=== PATIENT | female | born 1985 ===

== ENCOUNTER 2020-10-14 09:42 | Emergency (ER) | payer BC ==
[2020-10-14] MEDS ORDERED: LORazepam 1 MG Tab PO ONE (10:15)
--- NOTE | 2020-10-14 10:15 | EDM.PDOCBH ---
ED HPI GENERAL MEDICAL PROBLEM - General Stated Complaint: PANIC ATTACK Time Seen by Provider: 10/14/20 10:04 Source of Information: Reports: Patient History Limitations: Reports: No Limitations - History of Present Illness INITIAL COMMENTS - FREE TEXT/NARRATIVE: HISTORY AND PHYSICAL: History of present illness: Patient is a 35-year-old female who presents to the emergency room with complaints of a panic attack that has been going on for the past 5 days. She states she has had depression and anxiety over the past 10 years and is currently on Celexa. In the past she has used Ativan as needed for anxiety attacks. She previously had been seeing a provider in [place], but due to COVID she had to move from [place] to [place]. She state has had feelings of anxiety for periods of minutes to hours that will subside briefly but returned. "I feel like there's somethings wrong with me, it just wont go away". She states she is unable to see her provider in [place], although they did call her in a pres cription for Ativan. She hasn't pepper picker her script yet. She has been using marijuana routinely. Denies other alcohol or drug use. Review of systems: As per history of present illness and below otherwise all systems reviewed and negative. Past medical history: As per history of present illness and as reviewed below otherwise noncontributory. Surgical history: As per history of present illness and as reviewed below otherwise noncontributory. Social history: See social history for further information Family history: As per history of present illness and as reviewed below otherwise nonc ontributory. Physical exam: General: Well developed and well nourished. Alert and orientated x 3. Tearful, anxious but nontoxic in appearance and in no acute distress. Vital signs are stable and have been reviewed by me. Nursing notes were reviewed. HEENT: Atraumatic, normocephalic, pupils equal and reactive bilaterally, negative for conjunctival pallor or scleral icterus, mucous membranes moist, TMs normal bilaterally, throat clear, neck supple, nontender, trachea midline. No drooling or trismus noted. No meningeal signs. No hot potato voice noted. Lungs: Clear to auscultation bilaterally. No wheezes, rales, or rhonchi. Chest nontender. Normal work of breathing, no accessory muscles used. Heart: S1S2, regular rate and rhythm without overt murmur, gallops, or rubs. No JVD. No peripheral edema Abdomen: Soft, nondistended, nontender. Normoactive bowel sounds. Negative for masses or costovertebral tenderness. Skin: Intact, warm, dry. No lesions or rashes noted. Hematologic: No petechiae or purpra. Mucosa appropriate color and normal nail bed color and refill. Extremities: Atraumatic, moves all extremities per self without difficulty or deficits, negative for cords or calf pain. Neurovascular unremarkable. Neuro: Awake, alert, oriented. Cranial nerves II through XII unremarkable. Cerebellum unremarkable. Motor and sensory unremarkable throughout. Exam nonfocal. Psychiatric: Mood and affect are appropriate. Normal thought process. Answering questions appropriately. Notes: *This patient was seen and evaluated during the 2019 SARS-CoV-2 novel coronavirus pandemic period. Community viral transmission is ongoing at time of this encounter and the emergency department is operating under pandemic response procedures. I asked patient what brought her to the emergency room as she has a prescription for Ativan that she has not yet filled. She states she is concerned that something may be wrong and is wanting lab work as she feels that the anxiety is not "letting up" since COVID started. She states she has not had any lab work done in "years". No personal history of any health problems other than stated above. We will do a CBC, BMP and TSH today. She denies any concern of as she is here with her female partner and has an IUD in. Mild leukocytosis without source, she is asymptomatic. Otherwise lab work is unremarkable. We did set her up an appointment to see America Orta, today at 4pm so she can get better management of her anxiety and depression. I have talked with the patient about today's findings, in addition to providing specific details for plan of care. Reassessment at the time of disposition demonstrates that the patient is in no acute distress. The patient is stable for discharge, counseling was provided and we discussed in great detail signs and symptoms that would prompt them to return to the Emergency Department. Medication, follow up and supportive care measures were reviewed and discussed. Voices understanding and is agreeable to plan of care. Denies any further questions or concerns at this time. Diagnostics: CBC, BMP, TSH Therapeutics: Ativan Prescription: None Impression: Panic attack Plan: 1. Your basic lab work today was normal. Please pepper picker your prescription for your anxiety medications. YOU HAVE AN APPOINTMENT TODAY at 4pm with America Orta at [facility] (in our hospital building). 2. You can alternate Tylenol and ibuprofen as needed for pain and fever management. 3. If your symptoms should worsen, new symptoms develop or any of the signs and symptoms we discussed should arise please return to the emergency room or call 911 (if needed). Definitive disposition and diagnosis as appropriate pending reevaluation and review of above. - Related Data Allergies Allergy/AdvReac Type Severity Reaction Status Date / Time erythromycin base Allergy Other Verified 10/14/20 10:08 [From EryPed] sulfamethoxazole Allergy Nausea Verified 10/14/20 10:08 [From Bactrim] trimethoprim [From Bactrim] Allergy Nausea Verified 10/14/20 10:08 Home Meds: Home Meds Citalopram Hydrobromide [Celexa] 20 mg PO DAILY 10/14/20 [History] Gabapentin [Neurontin] 300 mg PO BEDTIME 10/14/20 [History] Zolpidem [Ambien] 10 mg PO BEDTIME 10/14/20 [History] ED ROS GENERAL - Review of Systems Review Of Systems: Comprehensive ROS is negative, except as noted in HPI. ED EXAM, BEHAVIORAL HEALTH - Physical Exam Exam: See Below (See dictation) COURSE, BEHAVIORAL HEALTH COMP - Course Vital Signs: Last Vital Signs Temp 98.8 F 10/14/20 10:05 Pulse 91 10/14/20 11:37 Resp 18 10/14/20 11:37 BP 136/83 10/14/20 11:37 Pulse Ox 95 10/14/20 11:37 Orders, Labs, Meds: Laboratory Tests 10/14/20 10/14/20 Range/Units 10:42 10:42 WBC 12.20 H (4.0-11.0) K/uL RBC 4.90 (4.30-5.90) M/uL Hgb 14.4 (12.0-16.0) g/dL Hct 44.5 (36.0-46.0) % MCV 90.8 (80.0-98.0) fL MCH 29.4 (27.0-32.0) pg MCHC 32.4 (31.0-37.0) g/dL RDW Std Deviation 44.3 (28.0-62.0) fl RDW Coeff of Anna 13 (11.0-15.0) % Plt Count 350 (150-400) K/uL MPV 9.30 (7.40-12.00) fL Neut % (Auto) 87.9 H (48.0-80.0) % Lymph % (Auto) 9.7 L (16.0-40.0) % [place] % (Auto) 2.0 (0.0-15.0) % Eos % (Auto) 0.2 (0.0-7.0) % Baso % (Auto) 0.2 (0.0-1.5) % Neut # (Auto) 10.7 H (1.4-5.7) K/uL Lymph # (Auto) 1.2 (0.6-2.4) K/uL [place] # (Auto) 0.2 (0.0-0.8) K/uL Eos # (Auto) 0.0 (0.0-0.7) K/uL Baso # (Auto) 0.0 (0.0-0.1) K/uL Nucleated RBC % 0.0 /100WBC Nucleated RBCs # 0 K/uL Sodium 139 (136-145) mmol/L Potassium 3.8 (3.5-5.1) mmol/L Chloride 104 (98-107) mmol/L Carbon Dioxide 25.1 (21.0-32.0) mmol/L BUN 8 (7.0-18.0) mg/dL Creatinine 0.8 (0.6-1.0) mg/dL Est Cr Clr Drug Dosing 82.74 mL/min Estimated GFR (MDRD) > 60.0 ml/min Glucose 106 (74-106) mg/dL Calcium 8.9 (8.5-10.1) mg/dL Total Bilirubin 0.3 (0.2-1.0) mg/dL AST 13 L (15-37) IU/L ALT 20 (14-63) IU/L Alkaline Phosphatase 74 (46-116) U/L Total Protein 7.6 (6.4-8.2) g/dL Albumin 4.2 (3.4-5.0) g/dL Globulin 3.4 (2.6-4.0) g/dL Albumin/Globulin Ratio 1.2 (0.9-1.6) TSH 3rd Generation 0.61 (0.36-3.74) uIU/mL Medications Discontinued Medications Generic Name Dose Route Start Last Admin Trade Name Zacarias PRN Reason Stop Dose Admin Lorazepam 1 mg 10/14/20 10:15 10/14/20 10:34 Ativan PO 10/14/20 10:16 1 mg ONETIME ONE Administration Departure - Departure Time of Disposition: 11:39 Disposition: Home, Self-Care 01 Clinical Impression: Panic attack - Discharge Information Instructions: Panic Attack, [id number] Referrals: [facility] [Ordering Only Provider] - 10/14/20 4:00 pm (You have an appointment at 4 pm today and you must check in no later than 3:30pm to door 8 and check in.) Forms: ED Department Discharge Additional Instructions: The following information is given to patients seen in the emergency department who are being discharged to home. This information is to outline your options for follow-up care. We provide all patients seen in our emergency department with a follow-up referral. The need for follow-up, as well as the timing and circumstances, are variable depending upon the specifics of your emergency department visit. If you don't have a primary care physician on staff, we will provide you with a referral. We always advise you to contact your personal physician following an emergency department visit to inform them of the circumstance of the visit and for follow-up with them and/or the need for any referrals to a consulting specialist. The emergency department will also refer you to a specialist when appropriate. This referral assures that you have the opportunity for follow-up care with a specialist. All of these measure are taken in an effort to provide you with optimal care, which includes your follow-up. Under all circumstances we always encourage you to contact your private physician who remains a resource for coordinating your care. When calling for follow-up care, please make the office aware that this follow-up is from your recent emergency room visit. If for any reason you are refused follow-up, please contact the [facility] Emergency Department at and asked to speak to the emergency department charge nurse. [facility] [address] [place] [id number] [facility] [address] [place] [phone] Thank you for choosing the [facility] emergency department in [place] for your medical needs today. It was a pleasure caring for you. Today you were seen in the emergency department for panic attack. 1. Your basic lab work today was normal. Please pepper picker your prescription for your anxiety medications. YOU HAVE AN APPOINTMENT TODAY at 4pm with America Orta at [facility] (in our hospital building- [id number]). 2. You can alternate Tylenol and ibuprofen as needed for pain and fever management. 3. If your symptoms should worsen, new symptoms develop or any of the signs and symptoms we discussed should arise please return to the emergency room or call 911 (if needed). Sepsis Event Note (ED) - Focused Exam Vital Signs: Vital Signs Temp Pulse Resp BP Pulse Ox 10/14/20 11:37 91 18 136/83 95 10/14/20 10:35 95 18 129/90 10/14/20 10:05 98.8 F 110 H 18 149/102 H 97
[2020-10-14 11:20] LABS: BLOOD UREA NITROGEN,BUN 8 mg/dL (7.0-18.0); CARBON DIOXIDE,CO2 25.1 mmol/L (21.0-32.0); CHLORIDE,CL 104 mmol/L (98-107); GLUCOSE RANDOM 106 mg/dL (74-106); POTASSIUM,K 3.8 mmol/L (3.5-5.1); SODIUM,NA 139 mmol/L (136-145)
== END 2020-10-14 11:37 | disposition home or self-care (01) ==
LOC: MW.ED 09:42
DX: F41.0 Panic disorder [episodic paroxysmal anxiety] (principal); Z88.1 Allergy status to other antibiotic agents; Z88.2 Allergy status to sulfonamides; Z79.899 Other long term (current) drug therapy
CPT/HCPCS: 36415; 80053; 84443; 85025; 99283; A9270